=== PATIENT | male | born 1935 | race Caucasian/White ===

== ENCOUNTER 2021-06-11 09:30 | Outpatient (CLI) | payer MEDICARE, BC | END 2021-06-11 23:59 | disposition home or self-care (01) | LOC: WOU 09:30 | PROVIDERS: ATTEND Specialist | DX: N30.41 Irradiation cystitis with hematuria (principal); C61 Malignant neoplasm of prostate; I48.0 Paroxysmal atrial fibrillation; I10 Essential (primary) hypertension; Z79.01 Long term (current) use of anticoagulants | CPT/HCPCS: G0463 ==